=== PATIENT | male | born 1965 | race Caucasian/White ===

== ENCOUNTER 2017-11-14 09:09 | Outpatient (CLI) | payer OTHER ==
--- NOTE | 2017-11-14 11:08 | MRI Report ---
EXAM: MRI LUMBAR SPINE WITHOUT CONTRAST EXAM DATE: 11/14/2017 09:51 AM. CLINICAL HISTORY: PARESTHESIA OF SKIN. COMPARISON: MRI 12/13/2010. Abdominopelvic CT 07/21/2015. TECHNIQUE: Multiplanar, multisequence T1-weighted and fluid-sensitive sequences of the lumbar spine f rom T12 to S1 without contrast. Other: None. FINDINGS: Spinal Cord: The conus terminates at . L1 Alignment: Minimal 1-2 mm posterior subluxation L5 on S1. Otherwise normal alignment. Bone Marrow: Five [id number] lumbar vertebral bodies are assumed. Small amount of diskogenic end plate edema at L4-L5 slightly less pronounced than prior. No fracture. No destructive bone lesion. Disk Levels/Facets: T12-L1: Unremarkable. L1-L2: Unremarkable. L2-L3: Unremarkable. L3-L4: Small bilateral broad-based foraminal protrusions. Slight annular disk bulge. Mild bilateral f oraminal stenosis. Mild degenerative facet arthropathy. L4-L5: Disk height loss. Annular disk bulge with a small foraminal protrusions and mild facet arthrop athy. Mild effacement of the thecal sac. Mild bilateral foraminal stenosis. L5-S1: Disk height loss. Annular disk bulge with broad-based central protrusion. Mild facet arthropat hy. Gsyc-ii-nwsqptic bilateral foraminal stenosis left greater than right not significantly changed. Musculature: Normal. No edema or fatty atrophy. Other: The partially visualized retroperitoneum is unremarkable. IMPRESSION: 1. Foraminal stenosis which is mild to moderate at L5-S1 and mild at the L4-L5 greater than L3-L4 lev el is not significantly changed. Comment: The following findings are so common in adults without low back pain that while we report th eir presence, they must be interpreted with caution and in the context of the clinical situation. (Re amy Castillo et al, Spine 2001) Prevalence of findings in patients without low back pain: Disk degeneration (any evidence): 92% Disk desiccation/T2 signal loss: 83% Disk height loss: 56% Disk bulge: 64% Disk protrusion: 32% Annular tear/high intensity zone: 38% [facility] Referring Provider Line: [phone] SITE ID: [id number]
== END 2017-11-14 09:10 | disposition home or self-care (01) ==
LOC: DI 09:09
PROVIDERS: ATTEND Registered Nurse Diabetes Educator
DX: M51.36 Other intervertebral disc degeneration, lumbar region (principal); M47.896 Other spondylosis, lumbar region; M47.897 Other spondylosis, lumbosacral region; M51.37 Other intervertebral disc degeneration, lumbosacral region; M43.17 Spondylolisthesis, lumbosacral region
CPT/HCPCS: 72148

== ENCOUNTER 2017-11-27 10:27 | Day surgery (SDC) | payer OTHER ==
[2017-11-27] MEDS ORDERED: MIDAZOLAM 2 MG/2 ML VIAL IVP ONE (10:28)
[2017-11-27] MEDS ORDERED: fentaNYL 100 MCG/2 ML VIAL IVP ONE (10:28)
[2017-11-27] MEDS ORDERED: LACTATED RINGERS 1,000 ML IV ONE (10:45)
[2017-11-27 12:22] VITALS: BP 105/66
== END 2017-11-27 10:28 | disposition home or self-care (01) ==
LOC: SDS 10:27
PROVIDERS: ATTEND Surgery
PROC: 0DJD8ZZ Inspection of Lower Intestinal Tract, Via Natural or Artificial Opening Endoscopic (ICD-10-PCS; principal; 2017-11-27 12:00)
DX: Z12.11 Encounter for screening for malignant neoplasm of colon (principal); K64.8 Other hemorrhoids; J45.909 Unspecified asthma, uncomplicated
CPT/HCPCS: 45378; J7120